=== PATIENT | male | born 1985 | race Two or more races ===

== ENCOUNTER 2018-09-06 11:06 | Emergency (ER) | payer SELFPAY ==
[~2018-09-06] VITALS: Ht 177.8 cm; Wt 68.0 kg
[2018-09-06 12:55] VITALS: BP 112/66
[2018-09-06] MEDS ORDERED: KETOROLAC TROMETH 60MG/2ML VIAL IM ONE (13:00)
[2018-09-06] MEDS ORDERED: HYDROcodone-ACET 10/325MG TAB PO ONE (13:00)
[2018-09-06] MEDS ORDERED: cefTRIAXone SOD 1,000 MG VL IM ONE (13:00)
[2018-09-06] MEDS ORDERED: LIDOCAINE VISCOUS 2% 15ML UD PO ONE (13:00)
[2018-09-06] MEDS ORDERED: LIDOCAINE 1%HCL (LOCAL ANESTH) 10 ML MDV ONE (13:01)
== END 2018-09-06 13:25 | disposition home or self-care (01) ==
LOC: ER 11:09
DX: H70.91 Unspecified mastoiditis, right ear (principal); H66.91 Otitis media, unspecified, right ear
CPT/HCPCS: 70450; 96372; 99284; J0696; J1885; J2001

== ENCOUNTER 2021-11-18 09:42 | Emergency (ER) | payer SELFPAY ==
[~2021-11-18] VITALS: Ht 165.1 cm; Wt 65.8 kg
[2021-11-18 12:48] VITALS: BP 115/90
[2021-11-18] MEDS ORDERED: methylPREDNISolone SOD SUCC 125 MG/2 ML VL IM ONE (13:30)
[2021-11-18] MEDS ORDERED: cefTRIAXone SOD 1,000 MG VL IM ONE (13:30)
[2021-11-18] MEDS ORDERED: ALBUAER3 IN (13:35)
[2021-11-18] MEDS ORDERED: PRED20TA2 PO (13:35)
[2021-11-18] MEDS ORDERED: AMOX-277 PO (13:35)
[2021-11-18] MEDS ORDERED: ACET-1158 PO (13:35)
== END 2021-11-18 14:25 | disposition home or self-care (01) ==
LOC: ER 09:42
DX: U07.1 COVID-19 (principal); J06.9 Acute upper respiratory infection, unspecified
CPT/HCPCS: 36415; 71045; 87426; 96372; 99284; J0696; J2930